=== PATIENT | female | born 1945 | race Caucasian/White ===

== ENCOUNTER 2017-10-28 15:25 | Emergency (ER) | payer MEDICARE, OTHER ==
[2017-10-28] MEDS: BENZONATATE 100 MG CAPSULE. PO (16:12)
[2017-10-28 16:14] LABS: HEMATOCRIT 27.3 % (36.0-47.0); HEMOGLOBIN 9.2 g/dL (12.0-15.5); MEAN CORPUSCULAR HEMOGLOBIN 35 pg (25-35); MEAN CORPUSCULAR HGB CONC 34 g/dL (31-37); MEAN CORPUSCULAR VOLUME 104 fL (79-100); PLATELET COUNT 436 x10^3/uL (140-400); RED BLOOD COUNT 2.64 x10^6/uL (3.50-5.40); RED CELL DISTRIBUTION WIDTH 24.9 % (11.5-14.5); WHITE BLOOD COUNT 7.3 x10^3/uL (4.0-11.0)
[2017-10-28 16:23] LABS: ANION GAP 11 (6-14); BLOOD UREA NITROGEN 17 mg/dL (7-20); BUN/CREATININE RATIO 19 (6-20); CALCIUM 8.4 mg/dL (8.5-10.1); CARBON DIOXIDE 25 mmol/L (21-32); CHLORIDE 106 mmol/L (98-107); CREATININE 0.9 mg/dL (0.6-1.0); GFR 61.5; GLUCOSE 136 mg/dL (70-99); POTASSIUM 4.4 mmol/L (3.5-5.1); SODIUM 142 mmol/L (136-145)
[2017-10-28 16:29] LABS: ALBUMIN 3.8 g/dL (3.4-5.0); ALK PHOS 93 U/L (46-116); AST (SGOT) 13 U/L (15-37); CREATINE KINASE 26 U/L (26-192); TOTAL BILIRUBIN 0.6 mg/dL (0.2-1.0); TOTAL PROTEIN 7.5 g/dL (6.4-8.2)
[2017-10-28 16:33] LABS: TROPONINI < 0.017 ng/mL (0.000-0.055)
[2017-10-28 16:39] LABS: CKMB MASS 0.8 ng/mL (0.0-3.6); CREATINE KINASE 30 U/L (26-192)
[2017-10-28 16:51] LABS: ALT (SGPT) 15 U/L (14-59)
== END 2017-10-28 17:31 | disposition home or self-care (01) ==
LOC: ER 15:25
DX: R05 Cough (principal); J34.89 Other specified disorders of nose and nasal sinuses; E03.9 Hypothyroidism, unspecified; I10 Essential (primary) hypertension; Z88.5 Allergy status to narcotic agent; Z91.041 Radiographic dye allergy status
CPT/HCPCS: 36415; 71020; 80053; 82550; 82553; 84484; 85027; 93005; 99285-25

== ENCOUNTER 2019-11-25 23:41 | Emergency (ER) | payer OTHER, MEDICARE ==
[~2019-11-25] VITALS: Ht 172.7 cm; Wt 82.7 kg
[~2019-11-25 23:41] MED LIST: ASPI-482 PO; AZIT250T6 PO; BENZ100C PO; CALC-31 PO; CLIN300C8 PO; DOCU-109 PO; LEVO150T PO; LEVO150T5; LISI-338; LISI-338 PO; MV,1TABL3 PO; NAPR250T6 PO; OMEP20TA8 PO; OXYC1TAB15 PO; OXYC1TAB19 PO; SERT100T8 PO; SULF1TAB24 PO; TRAM50TA PO
[2019-11-25 23:47] VITALS: BP 155/72
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
[2019-11-26] MEDS ORDERED: DICL50TA4 PO (01:28)
[2019-11-26] MEDS ORDERED: ORPH100T PO (01:28)
[2019-11-26] MEDS ORDERED: TRAM50TA PO (01:28)
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
[2019-11-26] MEDS ORDERED: HYDROcodone/APAP 7.5/325MG 1 TAB TABLET PO ONE (02:00)
== END 2019-11-26 01:47 | disposition home or self-care (01) ==
LOC: ER 23:41
DX: S20.219A Contusion of unspecified front wall of thorax, initial encounter (principal); S16.1XXA Strain of muscle, fascia and tendon at neck level, initial encounter; S29.019A Strain of muscle and tendon of unspecified wall of thorax, initial encounter; R55 Syncope and collapse; I10 Essential (primary) hypertension; E03.9 Hypothyroidism, unspecified; Z90.710 Acquired absence of both cervix and uterus; Z90.89 Acquired absence of other organs; Z98.890 Other specified postprocedural states; Z88.8 Allergy status to other drugs, medicaments and biological substances; V89.2XXA Person injured in unspecified motor-vehicle accident, traffic, initial encounter; Y93.89 Activity, other specified; Y92.89 Other specified places as the place of occurrence of the external cause; Y99.8 Other external cause status
CPT/HCPCS: 71046; 71120; 72072; 72125; 99284